=== PATIENT | female | born 1990 | race Caucasian/White ===

== ENCOUNTER 2016-12-05 21:45 | Emergency (ER) | payer OTHER ==
[2016-12-05 21:56] VITALS: TEMP 99.1
--- NOTE | 2016-12-05 22:36 | C.PDOC ---
History Of Present Illness 26 year old female who presents to the ER with a complaint of a diffuse vesicular rash for the past 2 days. Patient states the rash is mildly puritic and believes she might be having an allergic reaction to something. Denies pain or recent sick contact. Time Seen by Provider: 12/05/16 22:03 Chief Complaint (Nursing): Abnormal Skin Integrity History Per: Patient History/Exam Limitations: no limitations Onset/Duration Of Symptoms: Days Current Symptoms Are (Timing): Still Present Location Of Injury: Right: Arm, Leg, Left: Arm, Leg, Anterior: Abdomen, Chest, Posterior: Abdomen, Chest Quality Of Symptoms: Itching Recent travel outside of the [place]: No Past Medical History Reviewed: Historical Data, Nursing Documentation, Vital Signs Vital Signs: Last Vital Signs Temp 99.1 F 12/05/16 21:52 Pulse 84 12/05/16 22:40 Resp 16 12/05/16 22:40 BP 119/79 12/05/16 22:40 Pulse Ox 98 12/05/16 22:40 - Medical History PMH: No Chronic Diseases Surgical History: No Surg Hx Family History: States: Unknown Family Hx - Social History Hx Alcohol Use: Yes Hx Substance Use: No - Immunization History Hx Influenza Vaccination: No Hx Pneumococcal Vaccination: No Review Of Systems Constitutional: Negative for: Fever, Chills ENT: Negative for: Throat Swelling Cardiovascular: Negative for: Chest Pain Respiratory: Negative for: Shortness of Breath, Wheezing Skin: Positive for: Rash Physical Exam - Physical Exam Appears: Non-toxic Skin: Warm, Dry, Rash (Isolated vesicles diffusely throughout body, consistent with viral infection, possibly chicken pox.) Head: Atraumatic, Normacephalic Oral Mucosa: Moist Throat: Normal, No Other (Swelling) Neck: Normal, Supple Chest: Symmetrical, No Tenderness Cardiovascular: Rhythm Regular Respiratory: Normal Breath Sounds, No Rales, No Rhonchi, No Stridor, No Wheezing Gastrointestinal/Abdominal: Soft, No Tenderness Neurological/Psych: Oriented x3, Normal Speech, Normal Cognition ED Course And Treatment O2 Sat by Pulse Oximetry: 99 (Room air) Pulse Ox Interpretation: Normal Progress Note: Zovirax administered. Patient remains stable in the ER and is in no distress, will discharge with instructions to follow up with dermatology. Disposition - Disposition Disposition: HOME/ ROUTINE Disposition Time: 22:33 Condition: STABLE Additional Instructions: Follow up with PMD and Home Visits Nurse within 1-2 days. Return to Ed if feel worse. Prescriptions: Acyclovir 800 mg PO QID #40 tablet Instructions: Acute Rash (ED) Forms: [facility] ([place]) - Clinical Impression Clinical Impression: Vesicular rash - Scribe Statement The provider has reviewed the documentation as recorded by the Scribnhan Santana All medical record entries made by the Judyibnhan were at my direction and personally dictated by me. I have reviewed the chart and agree that the record accurately reflects my personal performance of the history, physical exam, medical decision making, and the department course for this patient. I have also personally directed, reviewed, and agree with the discharge instructions and disposition.
[2016-12-05 22:41] VITALS: BP 119/79; PULSE 84; RESP 16
[2016-12-06 03:00] VITALS: O2SAT 99
== END 2016-12-05 22:40 | disposition home or self-care (01) ==
LOC: C.ER 21:45
DX: R21 Rash and other nonspecific skin eruption (principal)